=== PATIENT | male | born 1945 | race Caucasian/White ===

== ENCOUNTER 2017-06-29 16:01 | Day surgery (SDC) | payer MEDICARE ==
[2017-06-15 07:31] VITALS: BP 134/88
[~2017-06-29] VITALS: Ht 185.4 cm; Wt 87.0 kg
[~2017-06-29 16:01] MED LIST: ALPR0.25 PO; ASPI325T17 PO; CALC200T3 PO; FAMO40TA61 PO; GABA300C10 PO; IRBE300T40 PO; LACTATED RINGERS 1,000 ML IV SCH; METF500T4 PO; OMEG100023 PO; POTA20PA25 PO; SIMV40TA3 PO; TORS10TA4 PO
[2017-06-29 16:14] VITALS: BP 145/89
[2017-06-29] MEDS ORDERED: LACTATED RINGERS 1,000 ML IV SCH (16:28)
[2017-06-29] MEDS ORDERED: MIDAZOLAM 1 MG/ML, 2ML ONE (19:47)
[2017-06-29] MEDS ORDERED: FENTANYL PF 250 MCG/5ML ONE (19:49)
[2017-06-29] MEDS ORDERED: HYDROmorphone 1 MG/ML, 1ML IV PRN (20:30)
[2017-06-29] MEDS ORDERED: OXYcodone 5 MG/5 ML ORAL.SOL UDC PO PRN (20:30)
[2017-06-29] MEDS ORDERED: ONDANSETRON 2MG/ML, 2ML IVPush PRN (20:30)
[2017-06-29] MEDS ORDERED: FENTANYL PF 100 MCG/2ML IV PRN (20:30)
[2017-06-29] MEDS ORDERED: ACETAMINOPHEN 325 MG TABLET PO PRN (20:30)
[2017-06-29] MEDS ORDERED: BALANCED SALT OPHTH IRRIG SOLN 18ML ONE (20:46)
[2017-06-29] MEDS ORDERED: SUCCINYLCHOLINE 20 MG/ML, 10ML ONE (21:01)
[2017-06-29] MEDS ORDERED: DEXAMETHASONE 4 MG/ML, 1ML ONE ×2 (21:01)
[2017-06-29] MEDS ORDERED: ROCURONIUM 10 MG/ML,10ML ONE (21:01)
[2017-06-29] MEDS ORDERED: ONDANSETRON 2MG/ML, 2ML ONE (21:02)
[2017-06-29] MEDS ORDERED: OXYcodone/APAP 5/325MG TABLET PO PRN (21:30)
[2017-06-29] MEDS ORDERED: ACET1TAB64 PO (22:36)
[2017-06-29] MEDS ORDERED: CIPR500T87 PO (22:38)
[2017-06-29] MEDS ORDERED: PHEN-418 PO (22:40)
== END 2017-06-29 23:37 | disposition home or self-care (01) ==
LOC: OUT 16:01 → 4NOR 22:16 → OUT 23:37
PROVIDERS: ATTEND Urology
DX: N40.0 Benign prostatic hyperplasia without lower urinary tract symptoms (principal); I25.10 Atherosclerotic heart disease of native coronary artery without angina pectoris; E78.00 Pure hypercholesterolemia, unspecified; I10 Essential (primary) hypertension; K21.9 Gastro-esophageal reflux disease without esophagitis; Z88.1 Allergy status to other antibiotic agents; Z88.5 Allergy status to narcotic agent; I25.2 Old myocardial infarction
CPT/HCPCS: 52648; 81003; 82962; 87086; 93005; J0330; J1100; J2250; J2405; J3010; J7120

== ENCOUNTER → 2017-11-30 | Outpatient (CLI) | payer MEDICARE ==
[~2017-11-30] MED LIST changes: +ACET1TAB64 PO; +CIPR500T87 PO; -LACTATED RINGERS 1,000 ML IV SCH; +PHEN-418 PO
== END ==
LOC: CVU 07:50
PROVIDERS: ATTEND Internal Medicine Cardiovascular Disease
DX: I35.0 Nonrheumatic aortic (valve) stenosis (principal); I10 Essential (primary) hypertension; I25.2 Old myocardial infarction; Z87.891 Personal history of nicotine dependence
CPT/HCPCS: 93306

== ENCOUNTER → 2018-02-08 | Outpatient (CLI) | payer MEDICARE ==
[~2018-02-08] MED LIST changes: -METF500T4 PO; +METF500T5 PO
== END | disposition home or self-care (01) ==
LOC: CFH 12:28
PROVIDERS: ATTEND Internal Medicine
DX: Z12.2 Encounter for screening for malignant neoplasm of respiratory organs (principal); J84.10 Pulmonary fibrosis, unspecified; I25.10 Atherosclerotic heart disease of native coronary artery without angina pectoris; Z87.891 Personal history of nicotine dependence
CPT/HCPCS: G0297

== ENCOUNTER 2018-07-16 01:02 | Emergency (ER) | payer MEDICARE ==
[~2018-07-16] VITALS: Ht 185.4 cm; Wt 84.2 kg
[~2018-07-16 01:02] MED LIST changes: +METF500T17 PO; -METF500T5 PO
[2018-07-16] MEDS ORDERED: ASPI-515 PO (01:34)
[2018-07-16] MEDS ORDERED: ONDANSETRON 2MG/ML, 2ML ONE (01:48)
[2018-07-16] MEDS ORDERED: FAMOTIDINE 20 MG/2 ML ONE (01:48)
[2018-07-16 01:49] LABS: BASOPHILS # (AUTO) 0.01 x10^3/uL (0-0.1); BASOPHILS % (AUTO) 0 % (0-1); EOSINOPHILS # (AUTO) 0.07 x10^3/uL (0-0.4); EOSINOPHILS % (AUTO) 1 % (1-7); LYMPHOCYTES # (AUTO) 0.38 x10^3/uL (1-3.4); LYMPHOCYTES % (AUTO) 5 % (22-44); MD NO; MEAN CORPUSCULAR HEMOGLOBIN 31.7 pg (27.5-34.5); MEAN CORPUSCULAR HGB CONC 33.2 g/dL (33.2-36.2); MEAN CORPUSCULAR VOLUME 95.4 fL (81-97); MEAN PLATELET VOLUME 7.1 fL (7.4-10.4); MONOCYTES # (AUTO) 0.24 x10^3/uL (0.2-0.8); MONOCYTES % (AUTO) 3 % (2-9); NEUTROPHILS # (AUTO) 7.74 x10^3/uL (1.8-6.8); NEUTROPHILS % (AUTO) 92 % (42-75); PLATELET COUNT 194 x10^3/uL (130-400); RED BLOOD COUNT 5.18 x10^6/uL (4.38-5.82); RED CELL DISTRIBUTION WIDTH 13.3 % (9.4-14.8)
[2018-07-16] MEDS ORDERED: FAMOTIDINE 20 MG/2 ML IVP ONE (02:00)
[2018-07-16] MEDS ORDERED: ONDANSETRON 2MG/ML, 2ML IVPush ONE (02:00)
[2018-07-16] MEDS ORDERED: SODIUM CHLORIDE 0.9% 1,000ML IVBOLUS ONE (02:00)
[2018-07-16 02:01] VITALS: BP 149/90
[2018-07-16 02:01] LABS: ALANINE AMINOTRANSFERASE 53 U/L (12-78); ALBUMIN 4.3 g/dL (3.4-5.0); ANION GAP 9 mmol/L (5-15); CALCIUM 8.8 mg/dL (8.5-10.1); CHLORIDE 106 mmol/L (98-107); CREATININE 1.63 mg/dL (0.7-1.3)
[2018-07-16 02:03] LABS: ALKALINE PHOSPHATASE 115 U/L (45-117); BILIRUBIN,TOTAL 0.4 mg/dL (0.2-1.0); TOTAL PROTEIN 8.5 g/dL (6.4-8.2)
[2018-07-16] MEDS ORDERED: LOPERAMIDE 2 MG CAPSULE ONE (02:55)
[2018-07-16] MEDS ORDERED: LOPERAMIDE 1 MG/5 ML, 10ML UDC PO ONE (03:00)
== END 2018-07-16 03:30 | disposition home or self-care (01) ==
LOC: ED 03:24
DX: R11.2 Nausea with vomiting, unspecified (principal); R19.7 Diarrhea, unspecified; E86.0 Dehydration; I10 Essential (primary) hypertension; E11.9 Type 2 diabetes mellitus without complications; Z87.891 Personal history of nicotine dependence
CPT/HCPCS: 36415; 80053; 83690; 85025; 96361; 96374; 96375; 99283; J2405; J3490; J7030

== ENCOUNTER 2018-08-07 07:57 | Observation (INO) | payer MEDICARE ==
[~2018-08-07] VITALS: Ht 185.4 cm; Wt 84.9 kg
[~2018-08-07 07:57] MED LIST changes: +ASPI-515 PO
--- NOTE | 2018-08-07 08:20 | NUR ---
ASSUMED CARE OF PATIENT. PATIENT C/O JOINT ACHES, NECK PAIN, RASH ON LEGS, INSOMNIA AND FEVER AT HOME. PT IN OTHERWISE NO ACUTE DISTRESS. DR. CROCKETT AT BEDSIDE.
[2018-08-07] MEDS ORDERED: ASPI-650 PO (08:29)
[2018-08-07] MEDS ORDERED: IBUPROFEN 200 MG TABLET PO ONE (08:30)
[2018-08-07] MEDS ORDERED: METF500T27 PO (08:32)
[2018-08-07] MEDS ORDERED: IBUPROFEN 200 MG TABLET ONE (08:34)
[2018-08-07 09:00] LABS: HCT (SEDRATE) 43.7 % (39.2-51.8); MEAN CORPUSCULAR HEMOGLOBIN 31.9 pg (27.5-34.5); MEAN CORPUSCULAR HGB CONC 33.8 g/dL (33.2-36.2); MEAN CORPUSCULAR VOLUME 94.4 fL (81-97); MEAN PLATELET VOLUME 7.6 fL (7.4-10.4); PLATELET COUNT 289 x10^3/uL (130-400); RED BLOOD COUNT 4.64 x10^6/uL (4.38-5.82); RED CELL DISTRIBUTION WIDTH 13.4 % (9.4-14.8)
[2018-08-07 09:11] LABS: ALANINE AMINOTRANSFERASE 33 U/L (12-78); ALBUMIN 3.3 g/dL (3.4-5.0); ANION GAP 5 mmol/L (5-15); CHLORIDE 109 mmol/L (98-107)
[2018-08-07 09:18] LABS: ALKALINE PHOSPHATASE 85 U/L (45-117); BILIRUBIN,TOTAL 1.1 mg/dL (0.2-1.0); TOTAL PROTEIN 6.8 g/dL (6.4-8.2)
[2018-08-07 09:27] LABS: CULTURE INDICATED? NO; MICROSCOPIC NOT IND
[2018-08-07 09:30] LABS: BASOPHILS % (AUTO) 0 % (0-1); EOSINOPHILS # (AUTO) 1.07 x10^3/uL (0-0.4); EOSINOPHILS % (AUTO) 8 % (1-7); LYMPHOCYTES # (AUTO) 1.07 x10^3/uL (1-3.4); LYMPHOCYTES % (AUTO) 8 % (22-44); MD SCAN; MONOCYTES # (AUTO) 0.27 x10^3/uL (0.2-0.8); MONOCYTES % (AUTO) 2 % (2-9); NEUTROPHILS % (AUTO) 82 % (42-75)
--- NOTE | 2018-08-07 09:44 | NUR ---
[facility] HAND-OFF REPORT GIVEN TO JENN BARROW.
--- NOTE | 2018-08-07 09:45 | NUR ---
REPORT FROM JENN MINOR. ASSUMED CARE OF PATIENT AT THIS TIME.
--- NOTE | 2018-08-07 09:55 | NUR ---
VS UPDATED IN CHART, AWAITING [facility], PATIENT/FAMILY UPDATED ON POC. [facility] [id number].
--- NOTE | 2018-08-07 10:07 | NUR ---
RESULTS BACK, CHART UP FOR RECHECK.
--- NOTE | 2018-08-07 12:27 | NUR ---
NEW ORDERS, PATIENT TO BE ADMIT, VS UPDATED IN CHART, IV ESTABLISHED. AWAITING BED ASSIGNMENT, PATIENT/FAMILY UPDATED ON POC.
[2018-08-07] MEDS ORDERED: ONDANSETRON ODT 4 MG PO PRN (12:30)
[2018-08-07] MEDS ORDERED: DOCUSATE 100 MG CAPSULE PO PRN (12:30)
[2018-08-07] MEDS ORDERED: POLYETHYLENE GLYCOL 17 GM PACKET PO PRN (12:30)
[2018-08-07] MEDS ORDERED: ENALAPRILAT 1.25 MG/ML, 2ML IVPush PRN (12:30)
[2018-08-07] MEDS ORDERED: LABETALOL 5MG/ML, 20ML IVPush PRN (12:30)
[2018-08-07] MEDS ORDERED: ONDANSETRON 2MG/ML, 2ML IVPush PRN (12:30)
[2018-08-07] MEDS ORDERED: CALCIUM CARBONATE 500 MG TAB.CHEW PO PRN (12:30)
[2018-08-07] MEDS ORDERED: TORSEMIDE 20 MG TABLET PO SCH (12:30)
[2018-08-07] MEDS ORDERED: BISACODYL 10 MG SUPP PR PRN (12:30)
[2018-08-07] MEDS ORDERED: LIDODERM 5% PATCH TD SCH (12:30)
[2018-08-07] MEDS ORDERED: ENOXAPARIN 40 MG/0.4 ML SQ SCH (12:30)
[2018-08-07] MEDS ORDERED: SODIUM CHLORIDE FLUSH 10ML SYR IVF PRN (12:30)
[2018-08-07] MEDS ORDERED: ACETAMINOPHEN 500 MG TABLET ONE (14:03)
[2018-08-07] MEDS ORDERED: ENOXAPARIN 40 MG/0.4 ML ONE (14:03)
[2018-08-07] MEDS ORDERED: LIDODERM 5% PATCH TD ONE (14:03)
[2018-08-07] MEDS ORDERED: KETOROLAC 30 MG/1 ML ONE (14:03)
[2018-08-07] MEDS: ACETAMINOPHEN 500 MG TABLET PO SCH ×2 (14:08→18:39)
[2018-08-07] MEDS: KETOROLAC 30 MG/1 ML IV SCH ×2 (14:08→18:39)
--- NOTE | 2018-08-07 14:10 | NUR ---
NEW ORDERS, MEDICATIONS ADMINISTERED PER MAR, CARDIAC DIET ORDERED PER MD ORDER PER PATIENT REQUEST, FAMILY SITTING AT BEDSIDE, PATIENT TO BE MEDICAL HOLD DUE TO BED AVAILABILITY. NO ADDITIONAL NEEDS AT THIS TIME. SHERIN.
--- NOTE | 2018-08-07 15:04 | NUR ---
PATIENT AMB TO BATHROOM WITH STEADY GAIT, PATIENT PROVIDED DIET TRAY PER REQUEST.
--- NOTE | 2018-08-07 16:02 | NUR ---
PATIENT PLACED ON HOSPITAL BED, SITTING COMFORTABLY IN HOSPITAL BED, WATCHING TV, NADN.
[2018-08-07] MEDS ORDERED: GABAPENTIN 300 MG CAPSULE ONE (16:23)
[2018-08-07] MEDS: GABAPENTIN 300 MG CAPSULE PO SCH ×2 (16:25→20:05)
--- NOTE | 2018-08-07 17:07 | NUR ---
PATIENT TRANSFERRED/ADMITTED TO HOSPITAL BED UPSTAIRS AT THIS TIME.
[2018-08-07 18:04] VITALS: BP 101/64
[2018-08-07] MEDS: POTASSIUM CHLORIDE 20 MEQ TAB.ER.PRT PO SCH (20:05)
[2018-08-07] MEDS ORDERED: IRBESARTAN 300 MG TABLET PO SCH (21:00)
[2018-08-07] MEDS ORDERED: SIMVASTATIN 40 MG TABLET PO SCH (21:00)
[2018-08-07] MEDS ORDERED: metFORMIN XR 500 MG TAB.ER.24H PO SCH (21:00)
[2018-08-08] MEDS: ACETAMINOPHEN 500 MG TABLET PO SCH ×2 (00:04→06:00)
[2018-08-08] MEDS: KETOROLAC 30 MG/1 ML IV SCH ×2 (00:05→06:00)
[2018-08-08 03:29] VITALS: BP 95/60
[2018-08-08 05:50] LABS: BASOPHILS # (AUTO) 0.04 x10^3/uL (0-0.1); BASOPHILS % (AUTO) 0 % (0-1); EOSINOPHILS # (AUTO) 1.11 x10^3/uL (0-0.4); EOSINOPHILS % (AUTO) 11 % (1-7); LYMPHOCYTES # (AUTO) 1.47 x10^3/uL (1-3.4); LYMPHOCYTES % (AUTO) 15 % (22-44); MD NO; MEAN CORPUSCULAR HEMOGLOBIN 31.8 pg (27.5-34.5); MEAN CORPUSCULAR HGB CONC 33.5 g/dL (33.2-36.2); MEAN CORPUSCULAR VOLUME 94.8 fL (81-97); MEAN PLATELET VOLUME 7.7 fL (7.4-10.4); MONOCYTES # (AUTO) 0.58 x10^3/uL (0.2-0.8); MONOCYTES % (AUTO) 6 % (2-9); NEUTROPHILS # (AUTO) 6.74 x10^3/uL (1.8-6.8); NEUTROPHILS % (AUTO) 68 % (42-75); PLATELET COUNT 255 x10^3/uL (130-400); RED BLOOD COUNT 3.96 x10^6/uL (4.38-5.82); RED CELL DISTRIBUTION WIDTH 13.2 % (9.4-14.8)
[2018-08-08 06:11] LABS: CHLORIDE 107 mmol/L (98-107)
[2018-08-08 06:21] LABS: ALANINE AMINOTRANSFERASE 28 U/L (12-78); ALBUMIN 2.7 g/dL (3.4-5.0); ALKALINE PHOSPHATASE 78 U/L (45-117); ANION GAP 7 mmol/L (5-15); BILIRUBIN,TOTAL 0.7 mg/dL (0.2-1.0); CALCIUM 8.4 mg/dL (8.5-10.1); CREATININE 1.34 mg/dL (0.7-1.3); TOTAL PROTEIN 6.2 g/dL (6.4-8.2)
[2018-08-08 07:33] VITALS: BP 138/86
[2018-08-08] MEDS ORDERED: ASPIRIN 81 MG TABLET EC PO SCH (09:00)
[2018-08-08] MEDS: GABAPENTIN 300 MG CAPSULE PO SCH (09:13)
[2018-08-08] MEDS: POTASSIUM CHLORIDE 20 MEQ TAB.ER.PRT PO SCH (09:13)
[2018-08-08] MEDS ORDERED: ACET500T71 PO (11:31)
[2018-08-08 11:37] VITALS: BP 121/78
== END 2018-08-08 12:40 | disposition home or self-care (01) ==
LOC: ED 08:30 → UNDOADMOB 12:10 → INTOOBSV 12:10 → EDIP 12:10 → 4NOR 17:05 → DCLOUNGE 08-08 12:13
PROVIDERS: ADMIT Hospitalist; ATTEND Hospitalist
DX: M13.0 Polyarthritis, unspecified (principal); D72.829 Elevated white blood cell count, unspecified; E11.9 Type 2 diabetes mellitus without complications; I10 Essential (primary) hypertension; I25.10 Atherosclerotic heart disease of native coronary artery without angina pectoris; I25.2 Old myocardial infarction; N40.0 Benign prostatic hyperplasia without lower urinary tract symptoms; Z87.891 Personal history of nicotine dependence
CPT/HCPCS: 36415; 80053; 81003; 83605; 84145; 85025; 85651; 86038; 86141; 86430; 86663; 86664; 86665; 86704; 86706; 86708; 86803; 87040; 87340; 96372; 96374; 96376; 97161; 97165; 99284; G0378; J1650; J1885

== ENCOUNTER 2020-10-09 12:33 | Outpatient (CLI) | payer MEDICARE ==
[~2020-10-09 12:33] MED LIST changes: +ACET500T64 PO; +ASPI-1026 PO; -ASPI-515 PO; +ASPI-963 PO; +METF500T27 PO; +SIMV40TA20 PO; -SIMV40TA3 PO
== END 2020-10-09 23:59 | disposition home or self-care (01) ==
LOC: CFH 12:33
DX: I08.0 Rheumatic disorders of both mitral and aortic valves (principal); I25.10 Atherosclerotic heart disease of native coronary artery without angina pectoris
CPT/HCPCS: 93306